=== PATIENT | male | born 1950 | race Caucasian/White ===

== ENCOUNTER 2020-06-03 12:46 | Emergency (ER) | payer OTHER ==
[~2020-06-03] VITALS: Ht 165.1 cm; Wt 72.6 kg
[2020-06-03] MEDS ORDERED: DILTIAZEM ER120 M2 (13:07)
[2020-06-03] MEDS ORDERED: COZAAR50 MG (13:07)
== END 2020-06-03 15:01 | disposition home or self-care (01) ==
LOC: ER 12:46
DX: S40.012A Contusion of left shoulder, initial encounter (principal); W18.39XA Other fall on same level, initial encounter; Y93.89 Activity, other specified; Y92.488 Other paved roadways as the place of occurrence of the external cause; Y99.8 Other external cause status